=== PATIENT | male | born 1955 | race Caucasian/White ===

== ENCOUNTER 2017-11-11 05:22 | Day surgery (SDC) | payer OTHER ==
[2017-11-10 11:29] VITALS: BMI 23.5
[~2017-11-11] VITALS: Ht 172.7 cm; Wt 69.2 kg
[2017-11-11] VITALS (11 sets, daily range): BP systolic 137–172; BP diastolic 75–110; PULSE 62–88; RESP 10–20; Ht 172.7 cm; Wt 69.2 kg
[2017-11-11] MEDS ORDERED: PROPOFOL 20 ML ONE (06:29)
[2017-11-11] MEDS ORDERED: LIDOCAINE 2% (SDV) 5 ML INJ ONE (06:29)
[2017-11-11] MEDS ORDERED: NEOSTIGMINE 3 MG/3 ML SYRINGE ONE (06:29)
[2017-11-11] MEDS ORDERED: ROCURONIUM 50 MG INJ ONE (06:29)
[2017-11-11] MEDS ORDERED: GLYCOPYRROLATE 0.4 MG INJ ONE (06:29)
[2017-11-11] MEDS ORDERED: FENTAnyl 50 MCG/ML VIAL ONE (06:29)
[2017-11-11] MEDS ORDERED: MIDAZOLAM 1 MG/ML 2 ML INJ ONE (06:29)
[2017-11-11] MEDS ORDERED: morphine (1 MG/ML) 10ML SYRINGE IV PRN ×3 (06:30)
[2017-11-11] MEDS ORDERED: EPHEDrine SULFATE 50 MG/5 ML SYG IV PRN (06:30)
[2017-11-11] MEDS ORDERED: MIDAZOLAM 1 MG/ML 2 ML INJ IV PRN (06:30)
[2017-11-11] MEDS ORDERED: HYDROmorphONE (0.2 MG/ML) 10ML SYG IV PRN ×3 (06:30)
[2017-11-11] MEDS ORDERED: OXYCODONE/ACETAMINOPHEN (5/325) TAB PO PRN ×4 (06:30→09:00)
[2017-11-11] MEDS ORDERED: hydrALAzine 20 MG INJ IV PRN (06:30)
[2017-11-11] MEDS ORDERED: LABETALOL HCL 20MG INJ IV PRN (06:30)
[2017-11-11] MEDS ORDERED: DEXAMETHASONE 4 MG/ML 1 ML INJ ONE (06:30)
[2017-11-11] MEDS ORDERED: ONDANSETRON 4 MG INJ IV PRN ×2 (06:30→09:00)
[2017-11-11] MEDS ORDERED: FENTAnyl 50 MCG/ML VIAL IV PRN ×2 (06:30)
[2017-11-11] MEDS ORDERED: ATROPINE 1 MG/10 ML SYRINGE IV PRN (06:30)
[2017-11-11] MEDS ORDERED: ONDANSETRON 4 MG INJ ONE (06:30)
[2017-11-11] MEDS ORDERED: MEPERIDINE 25 MG INJ IV PRN (06:30)
[2017-11-11] MEDS ORDERED: DIPHENHYDRAMINE 50 MG INJ IV PRN (06:30)
[2017-11-11] MEDS ORDERED: SUCCINYLCHOLINE CHLORIDE 100 MG/5 ML SYG IV ONE (06:30)
[2017-11-11] MEDS ORDERED: BUPIVACAINE 0.5% (SDV) 30 ML INJ ONE (06:59)
[2017-11-11] MEDS ORDERED: CEFAZOLIN 1 GM INJ ONE (07:00)
--- NOTE | 2017-11-11 07:22 | HPN ---
Date/Time of Note Date/Time of Note DATE: 11/11/17 TIME: 07:22 Interval H&P Admission Note Pt. seen H&P reviewed: No system changes NATALI SPRING MD Nov 11, 2017 07:22
[2017-11-11] MEDS ORDERED: hydrALAzine 20 MG INJ ONE (08:38)
--- NOTE | 2017-11-11 08:39 | OPR ---
Date/Time of Note Date/Time of Note DATE: 11/11/17 TIME: 08:30 Operative Report Procedure Date: Nov 11, 2017 Preoperative Diagnosis Bilateral inguinal hernia without obstruction Postoperative Diagnosis Direct right inguinal hernia without obstruction Indirect left inguinal hernia without obstruction Operation/Procedure Performed 1. Repair right inguinal hernia with large plug 2. Repair left inguinal hernia with extra large plug 3. Right ilioinguinal nerve block 4. Left ilioinguinal nerve block Surgeon Natali Spring MD [employer] P[employer] Net None Anesthesia Type: general Anesthesiologist: ORA SHORT MD Estimated Blood Loss: 0 - 10 ml's Transfusion none Specimen None Grafts/Implants Large Bard PerFix plug on right,extra large Bard PerFix plug on the left Tubes/Drains None Complications none Pt Condition Post Procedure: stable Disposition: PACU Indications Symptomatic Procedure Description After satisfactory general anesthesia was achieved, the abdomen was prepped and draped in the usual fashion. The right inguinal hernia was repaired first. The right groin was entered through the previous oblique groin incision done for hydrocelectomy many years ago. The incision was carried down to the level of the external oblique, which was opened in the direction of its fibers. The cord and nerve are retracted and preserved throughout the procedure. There was a direct sac which was dissected circumferentially and reduced. There was no indirect component. The direct reduction was maintained by placement of a large Bard PerFix plug which was secured circumferentially to healthy fascia with interrupted 3-0 Vicryl suture. Next the flap portion of the mesh was cut and fashioned to fit in the floor of the canal as an overlay. It was anchored at the pubic tubercle with 2-0 Novafil, laterally to inguinal ligament with interrupted 2-0 Novafil, and medially to conjoined tendon with interrupted 2-0 Novafil. The mesh distal to the cord was reconstituted with a single suture of 3-0 Vicryl creating a new internal ring of appropriate size. The cord and nerve were then replaced beneath the external oblique which was closed with a running 3-0 Vicryl suture. Next a right inguinal nerve block was performed. 10 cc of 0.25% plain Marcaine were injected into the fascia 1 cm medial and inferior to the right anterior iliac spine. 10 more cc of local anesthetic were injected directly into the wound. Andrew's fascia was closed with interrupted 3-0 Vicryl suture and skin closed with subcuticular absorbable rosey. Next the left inguinal hernia was repaired. The left groin was entered through a 4 cm transverse suprapubic left groin incision down to the level of the external oblique. This was opened in the direction of its fibers. In this case the floor was intact, and there was a large indirect sac which was dissected to its base at the internal ring and reduced. The reduction was maintained by placement of an extra-large plug secured circumferentially to healthy fascia with interrupted 3-0 Vicryl suture. Next the flap portion of the mesh was cut and fashioned to fit in the floor of the canal as an overlay. It was anchored at the pubic tubercle with 2-0 Novafil, laterally to the inguinal ligament with interrupted 2-0 Novafil, and medially the conjoined tendon with interrupted 2-0 Novafil. The most distal to the cord was reconstituted with a single suture of 3-0 Vicryl creating a new internal ring of appropriate size. The cord and nerve were then replaced beneath the external oblique which was closed with a running 3-0 Vicryl. Next a left ilioinguinal nerve block was performed. 10 cc of 0.25% Marcaine were injected into the fascia 1 cm medial and inferior to the left anterior iliac spine. 10 more cc of local anesthetic were injected directly into the subcutaneous tissues. Andrew's fascia was closed with interrupted 3-0 Vicryl, and skin closed with subcuticular absorbable rosey. Sponge and needle counts were reported as correct 2. NATALI SPRING MD Nov 11, 2017 08:39
[2017-11-11] MEDS ORDERED: morphine 2 MG INJ IV PRN (09:00)
== END 2017-11-11 10:30 | disposition home or self-care (01) ==
LOC: SDS 05:22 → SUR 05:22
PROVIDERS: ATTEND Surgery
DX: K40.20 Bilateral inguinal hernia, without obstruction or gangrene, not specified as recurrent (principal)
CPT/HCPCS: 49505; C1781; J0360; J0690; J1100; J2250; J2405; J2710; J3010; Z7512; Z7610